=== PATIENT | male | born 1970 | race Two or more races ===

== ENCOUNTER 2022-01-11 20:52 | Emergency (ER) | payer MEDICAID ==
[~2022-01-11] VITALS: Ht 198.1 cm; Wt 129.3 kg
[~2022-01-11 20:52] MED LIST: ASPI81CH45; ENAL20TA93; HYDR25TA4; MET50T PO; METF-489; NITR0.4S31 SL
[2022-01-11] MEDS ORDERED: ASPirin 81 mg TAB PO ONE (21:00)
[2022-01-11 21:39] LABS: Basophils # (auto) 0.1 10 ^3/uL (0-0.2); Basophils % (auto) 0.9 % (0.0-2.0); Eosinophils # (auto) 0.3 10 ^3/uL (0-0.8); Eosinophils % (auto) 2.7 % (0.0-7.0); Hemoglobin 16.1 g/dL (13.5-17.5); Lymphocytes # (auto) 2.9 10 ^3/uL (0.4-5.4); Lymphocytes % (auto) 28.7 % (10.0-50.0); Mean Corpuscular Hemoglobin 29.4 pg (28.0-32.0); Mean Corpuscular Hgb Conc. 33.6 g/dL (32.0-36.0); Mean Corpuscular Volume 87.7 fL (80.0-100.0); Monocytes # (auto) 0.7 10 ^3/uL (0-1.3); Monocytes % (auto) 6.9 % (0.0-12.0); Neutrophils # (auto) 6.1 10 ^3/uL (1.6-8.6); Neutrophils % (auto) 60.8 % (37.0-80.0); Nucleated Red Blood Cells % 0.1 %; Red Blood Cells 5.48 10^6/uL (4.5-5.90); Red Cell Distribution Width 13.7 % (11.8-14.3); White Blood Cell 10.1 10^3/uL (4.4-10.8)
[2022-01-11 21:47] LABS: Albumin 3.7 g/dL (3.4-5.0); BUN/Creatinine Ratio 8.8; Calcium 9.4 mg/dL (8.5-10.1); Potassium 4.1 mmol/L (3.5-5.1)
[2022-01-11 22:08] LABS: Bilirubin, Total 0.6 mg/dL (0.2-1.0); Total Protein 8.1 g/dL (6.4-8.2)
[2022-01-11 22:41] LABS: Urine Bacteria NONE SEEN /hpf (None Seen); Urine Blood Negative /uL (Negative); Urine Specific Gravity 1.028 (1.001-1.035); Urine WBC <1 /hpf (0 - 3)
[2022-01-11 23:05] LABS: Alcohol, Urine < 3.0 mg/dL (0-10); Amphetamine Screen, Urine NEGATIVE (NEGATIVE); Barbiturate Scree,Urine NEGATIVE (NEGATIVE); Benzodiazephine Screen, Urine NEGATIVE (NEGATIVE); Cannabinoid Screen, Urine NEGATIVE (NEGATIVE); Cocaine Screen, Urine NEGATIVE (NEGATIVE); Opiate Scree,Urine NEGATIVE (NEGATIVE); Phencyclidine Screen, Urine NEGATIVE (NEGATIVE)
[2022-01-11 23:30] VITALS: BP 128/76
[2022-01-11] MEDS ORDERED: NITROGLYCERIN 0.4 MG SL TAB SL ONE (23:30)
[2022-01-12] MEDS ORDERED: MORPHINE SULFATE 4 MG/ML SYR/VIAL IV PRN
[2022-01-12] MEDS ORDERED: ONDANSETRON HCL 4 MG/2 ML VIAL IV PRN
[2022-01-12] MEDS ORDERED: DOCUSATE SOD 100 MG CAP PO PRN
[2022-01-12] MEDS ORDERED: ACETAMINOPHEN 325 MG TAB PO PRN
[2022-01-12] MEDS ORDERED: DEXTROSE (50%) 50ML SYRG IV PRN
[2022-01-12] MEDS ORDERED: hydrALAZINE HCL 20 MG/ML VL IV PRN
[2022-01-12] MEDS ORDERED: HYDROcodone-ACET 5/325MG TAB PO PRN
[2022-01-12] MEDS ORDERED: SODIUM CHLOR 0.9% PF (SALINE LOCK) 10ML VIAL/SYR IV SCH (06:00)
[2022-01-12] MEDS ORDERED: InsuLIN REG 1unit/0.01ml Soln (100units/ml) SC SCH ×2 (07:00→22:00)
[2022-01-12] MEDS ORDERED: ACCU-CHEK COMFORT CURVE STRIP VI SCH (07:00)
[2022-01-12] MEDS ORDERED: METOPROLOL TARTRATE 50 MG TAB PO SCH (10:00)
[2022-01-12] MEDS ORDERED: FAMOTIDINE (10MG/ML) 2ML VL IV SCH (10:00)
[2022-01-12] MEDS ORDERED: ASPirin 81 mg TAB PO SCH (10:00)
== END 2022-01-12 00:25 | disposition left against medical advice (07) ==
LOC: ER 20:52
DX: I24.9 Acute ischemic heart disease, unspecified (principal); R00.0 Tachycardia, unspecified; I10 Essential (primary) hypertension; E11.65 Type 2 diabetes mellitus with hyperglycemia; I25.10 Atherosclerotic heart disease of native coronary artery without angina pectoris; I25.2 Old myocardial infarction; K21.9 Gastro-esophageal reflux disease without esophagitis; E78.5 Hyperlipidemia, unspecified; Z79.82 Long term (current) use of aspirin; Z79.899 Other long term (current) drug therapy
CPT/HCPCS: 36415; 71045; 80053; 80307; 81001; 83880; 84484; 85025; 93005; 99291